=== PATIENT | male | born 1990 | race Caucasian/White ===

== ENCOUNTER 2018-05-05 06:34 | Emergency (ER) | payer SELFPAY ==
[2018-05-05] MEDS ORDERED: KETOROLAC TROMETHAMINE INJ/PF 30 MG/1 ML SDV IV ONE (07:22)
[2018-05-05] MEDS ORDERED: ONDANSETRON HCL INJ/PF 4 MG/2 ML SDV IV ONE ×2 (07:22→09:01)
[2018-05-05] MEDS ORDERED: NORMAL SALINE 1000 ML 1,000 ML IV ONE (07:22)
--- NOTE | 2018-05-05 07:22 | ER Document Report ---
ED GI/ - General Mode of Arrival: Ambulatory Information source: Patient <MARVIN BOLTON - Last Filed: 05/05/18 07:23> <HI FELDER - Last Filed: 05/05/18 10:38> - General Chief Complaint: Flank Pain Stated Complaint: FLANK PAIN Time Seen by Provider: 05/05/18 07:13 Notes: 27-year-old male with kidney stones who presents to the emergency department today with complaints of left flank pain and left lower quadrant pain x9 days. Patient states the pain began x9 days ago but it was not very bad, he states that last night the pain became worse and this morning it became very severe. Patient describes the pain as coming in "radiating waves". Patient states he last passed a kidney stone 2 years ago. Patient denies any fevers. (MARVIN BOLTON) - Related Data Allergies/Adverse Reactions: chapstick Allergy (Uncoded 05/05/18 07:06) Past Medical History - General Information source: Patient - Social History Smoking Status: Never Smoker Cigarette use (# per day): No Frequency of alcohol use: None Drug Abuse: None Occupation: [employer] Lives with: Alone Family History: Reviewed & Not Pertinent Patient has suicidal ideation: No Patient has homicidal ideation: No Renal/ Medical History: Reports: Hx Kidney Stones Past Surgical History: Reports: Hx Tonsillectomy <HOANGTORINMARVIN - Last Filed: 05/05/18 07:23> Review of Systems - Review of Systems Constitutional: denies: Fever EENT: No symptoms reported Cardiovascular: No symptoms reported Respiratory: No symptoms reported Gastrointestinal: See HPI, Abdominal pain - LLQ, suprapubic Genitourinary: See HPI, Flank pain - left Male Genitourinary: No symptoms reported Musculoskeletal: No symptoms reported Skin: No symptoms reported Hematologic/Lymphatic: No symptoms reported Neurological/Psychological: No symptoms reported -: Yes All other systems reviewed and negative <MARVIN BOLTON - Last Filed: 05/05/18 07:23> Physical Exam <HOANGMARVIN - Last Filed: 05/05/18 07:23> <HI FELDER - Last Filed: 05/05/18 10:38> - Vital signs Vitals: Temp Pulse Resp BP Pulse Ox 97.7 F 63 16 141/80 H 100 05/05/18 06:35 05/05/18 06:35 05/05/18 06:35 05/05/18 06:35 05/05/18 06:35 - Notes Notes: Physical Exam: General: Alert, appears uncomfortable. HEENT: Normocephalic. Atraumatic. PERRL. Extraocular movements intact. Oropharynx clear. Neck: Supple. Non-tender. Respiratory: No respiratory distress. Clear and equal breath sounds bilaterally. Cardiovascular: Frequent premature beats, regular rate. Abdominal: Very tender with palpation of the left lower quadrant. Tenderness increases when moving towards midline, no pelvic ttp. No distension. Normal Bowel Sounds. Back: Mild left CVA tenderness with percussion just below the left rib margin, no right CVA ttp. No deformity or step off. Extremities: Moves all four extremities. Upper extremities: Normal inspection. Normal ROM. Lower extremities: Normal inspection. No edema. Normal ROM. Neurological: Normal cognition. AAOx4. Normal speech. Psychological: Normal affect. Normal Mood. Skin: Warm. Dry. Normal color. (MARVIN BOLTON) Course <MARVIN BOLTON - Last Filed: 05/05/18 07:23> - Laboratory Result Diagrams: 05/05/18 07:49 05/05/18 07:49 - Diagnostic Test Radiology reviewed: Image reviewed, Reports reviewed - Renal scan CT shows a 2 x 5 mm stone in the distal left ureter with some hydroureter and hydronephrosis. There is also comment about a low attenuations lesion in the right liver with recommendation for follow-up. <HI FELDER - Last Filed: 05/05/18 10:38> - Re-evaluation Re-evalutation: 05/05/18 09:02 Patient was given a copy of the radiology report about the kidney stone and about the liver lesion and the recommendations. Patient states he did have a CT scan about 3 years ago while he was in [place] with a kidney stone problem. He was advised to obtain a CD of that CT scan and the radiologist written report so that his primary care provider could compare that to the current study to see if the liver lesion is new or a old stable finding. (HI FELDER ) - Vital Signs Vital signs: Temp Pulse Resp BP Pulse Ox 97.7 F 63 16 141/80 H 100 05/05/18 06:35 11/05/18 06:35 05/05/18 06:35 05/05/18 06:35 05/05/18 06:35 - Laboratory Laboratory results interpreted by me: 05/05/18 05/05/18 07:49 08:46 RBC 5.58 H Urine Protein 30 H Urine Blood LARGE H Discharge <HOANGTORIN FREEMANON - Last Filed: 05/05/18 07:23> <HI FELDER - Last Filed: 05/05/18 10:38> - Discharge Clinical Impression: Calculus of distal right ureter Condition: Stable Disposition: HOME, SELF-CARE Additional Instructions: Kidney Stone You are passing a kidney stone. These stones are usually due to increased calcium or uric acid concentrations in your urine. Stones within the kidney itself are not painful. The pain occurs as the stone leaves the kidney to pass down the long tube, called the ureter, leading to the bladder. If the stone is small, it will usually pass by itself. Most patients can pass the stone at home. You will usually receive medications for pain, nausea or vomiting, and sometimes a medication to assist in passing the kidney stone. However, if the pain is very severe or if vomiting prevents you from taking oral pain medications, you may need to return for further treatment. Drink three or four quarts of fluids per day. You will be given pain medication (if needed) and urine strainers. Strain all your urine to see if the stone passes. If your doctor has asked you to bring the stone in for analysis, return with the stone once it has passed. Return if pain or vomiting become severe, if you develop a high fever, if you are unable to pass your urine, or if other unusual symptoms occur. Take the medications as prescribed. Start the Flomax tomorrow. Take ibuprofen 800 mg every 8 hours. Drink plenty of fluids. Strain your urine. Follow-up with [facility] urology if you do not pass the stone in the next few days. RETURN TO THE EMERGENCY ROOM IF ANY NEW OR WORSENING SYMPTOMS. Prescriptions: Oxycodone HCl/Acetaminophen [Percocet 5-325 mg Tablet] 1 - 2 tab PO ASDIR PRN # 15 tablet PRN Reason: Tamsulosin HCl [Flomax] 0.4 mg PO DAILY #7 capsule Referrals: [facility] [Provider Group] - Follow up as needed Scribe Attestation: 05/05/18 08:12 I personally performed the services described in the documentation, reviewed and edited the documentation which was dictated to the scribe in my presence, and it accurately records my words and actions. (HI FELDER) Scribe Documentation - Scribe Written by Teresa:: Teresa Mendoza, 05/05/2018 0729 acting as scribe for :: Cliff <MARVIN BOLTON - Last Filed: 05/05/18 07:23>
[2018-05-05 07:59] LABS: ABSOLUTE BASOPHILS # (AUTO) 0.1 10^3/uL (0.0-0.2); ABSOLUTE EOSINOPHILS # (AUTO) 0.2 10^3/uL (0.0-0.6); ABSOLUTE LYMPHOCYTES (AUTO) 1.2 10^3/uL (0.5-4.7); ABSOLUTE MONOCYTES (AUTO) 0.8 10^3/uL (0.1-1.4); ABSOLUTE NEUT (AUTO) 4.5 10^3/uL (1.7-8.2); BASOPHILS % (AUTO) 0.8 % (0-2); EOSINOPHILS % (AUTO) 2.7 % (0-6); HEMATOCRIT 45.8 % (37.9-51.0); LYMPHOCYTES % (AUTO) 17.4 % (13-45); MEAN CORPUSCULAR HEMOGLOBIN 28.6 pg (27.0-33.4); MEAN CORPUSCULAR HGB CONC 34.9 g/dL (32.0-36.0); MEAN CORPUSCULAR VOLUME 82 fl (80-97); MONOCYTES % (AUTO) 11.8 % (3-13); PLATELET COUNT 296 10^3/uL (150-450); RED BLOOD COUNT 5.58 10^6/uL (4.35-5.55); RED CELL DISTRIBUTION WIDTH 13.2 % (11.5-14.0); SEGMENTED NEUTROPHILS % (AUTO) 67.3 % (42-78); TOTAL CELLS COUNTED % (AUTO) 100 %; WHITE BLOOD COUNT 6.7 10^3/uL (4.0-10.5)
[2018-05-05 08:21] LABS: ALANINE AMINOTRANSFERASE 30 U/L (21-72); ALBUMIN 4.5 g/dL (3.5-5.0); ALKALINE PHOSPHATASE 47 U/L (38-126); ANION GAP 11 (5-19); ASPARTATE AMINO TRANSFERASE 23 U/L (17-59); BILIRUBIN,DIRECT 0.2 mg/dL (0.0-0.4); BILIRUBIN,TOTAL 0.6 mg/dL (0.2-1.3); BLOOD UREA NITROGEN 19 mg/dL (7-20); CALCIUM 9.9 mg/dL (8.4-10.2); CARBON DIOXIDE 29 mmol/L (22-30); CHLORIDE 104 mmol/L (98-107); GLUCOSE 93 mg/dL (75-110); POTASSIUM 4.3 mmol/L (3.6-5.0); SODIUM 143.9 mmol/L (137-145); TOTAL PROTEIN 6.9 g/dL (6.3-8.2)
--- NOTE | 2018-05-05 08:51 | RADIOLOGY REPORT (SQ) ---
EXAM DESCRIPTION: CT LTD RENAL STONE PROTOCOL ON COMPLETED DATE/TIME: 05/05/2018 8:01 am REASON FOR STUDY: LLQ pain COMPARISON: None. TECHNIQUE: CT scan of the abdomen and pelvis performed without intravenous or oral contrast. Images reviewed with lung, soft tissue, and bone windows. Reconstructed coronal and sagittal MPR images revi ewed. All images stored on PACS. All CT scanners at this facility use dose modulation, iterative reconstruction, and/or weight based d osing when appropriate to reduce radiation dose to as low as reasonably achievable (ALARA). [facility]: Dose Right [facility]: CareDose [facility]: Dose Right [facility]: Teradose 4D [facility]: Smart Consumr RADIATION DOSE: CT Rad equipment meets quality standard of care and radiation dose reduction techniq ues were employed. CTDIvol: 11.2 mGy. DLP: 654 mGy-cm.mGy. LIMITATIONS: None. FINDINGS: LOWER CHEST: No significant findings. No nodules or infiltrates. NON-CONTRASTED LIVER, SPLEEN, ADRENALS: Evaluation limited by lack of IV contrast. 1.5 cm indistinct low-attenuation lesion in the peripheral right lobe of the liver (axial series 3, image 32). No oth er identified significant masses. PANCREAS: No masses. No peripancreatic inflammatory changes. GALLBLADDER: No identified stones by CT criteria. No inflammatory changes to suggest cholecystitis. RIGHT KIDNEY AND URETER: No suspicious masses. Assessment limited by lack of IV contrast. No signif icant calcifications. No hydronephrosis or hydroureter. LEFT KIDNEY AND URETER: No suspicious masses. Assessment limited by lack of IV contrast. Punctate c alculus in a lower pole calyx. 2 x 5 mm calculus in the distal ureter at the ureteral vesicular junc tion. Mild hydronephrosis and hydroureter. AORTA AND RETROPERITONEUM: No aneurysm. No retroperitoneal masses or adenopathy. BOWEL AND PERITONEAL CAVITY: No obvious masses or inflammatory changes. No free fluid. APPENDIX: Normal. PELVIS, BLADDER, AND ABDOMINAL WALL:No abnormal masses. No free fluid. Bladder normal. BONES: No significant findings. OTHER: No other significant finding. IMPRESSION: 1. 2 X 5 MM CALCULUS IN THE DISTAL LEFT URETER WITH MILD HYDRONEPHROSIS AND HYDROURETER. TINY CALYCE AL CALCULUS IN THE LOWER POLE OF THE LEFT KIDNEY. 2. INDISTINCT LOW-ATTENUATION LESION IN THE RIGHT LOBE OF THE LIVER. DIFFICULT TO DETERMINE IF THIS IS A CYST OR OTHER HEPATIC LESION. WOULD CONSIDER ULTRASOUND OF THE LIVER FOR FURTHER EVALUATION IF THERE HAS BEEN NO PRIOR WORK-UP ELSEWHERE. 3. NO OTHER SIGNIFICANT OR ACUTE PROCESS IN THE ABDOMEN OR PELVIS. COMMENT: Quality ID # [id number]: Final reports with documentation of one or more dose reduction techniques (e.g., Automated exposure control, adjustment of the mA and/or kV according to patient size, use of iterative reconstruction technique) TECHNICAL DOCUMENTATION: JOB ID: [id number] [employer] - [employer]- All Rights Reserved Reading location - IP/workstation name: [facility]
[2018-05-05] MEDS ORDERED: MORPHINE SULFATE 10 MG/ML INJ IV ONE (09:01)
[2018-05-05 09:02] LABS: APPEARANCE,URINE CLEAR; BILIRUBIN,URINE NEGATIVE (NEGATIVE); COLOR,URINE YELLOW; GLUCOSE, URINE NEGATIVE (NEGATIVE); KETONES,URINE NEGATIVE (NEGATIVE); LEUKOCYTE ESTERASE,URINE NEGATIVE (NEGATIVE); NITRITE,URINE NEGATIVE (NEGATIVE); PROTEIN,URINE 30 mg/dL (NEGATIVE); URINE SPECIFIC GRAVITY 1.032; UROBILINOGEN,URINE NEGATIVE mg/dL (<2.0)
[2018-05-05] MEDS ORDERED: TAMSULOSIN HCL 0.4 MG CAP.SR.24H PO ONE (10:26)
[2018-05-05 11:02] VITALS: BP 128/74
== END 2018-05-05 11:03 | disposition home or self-care (01) ==
LOC: ER 06:34
DX: N20.1 Calculus of ureter (principal); R10.32 Left lower quadrant pain
CPT/HCPCS: 99284; 96361; 96374; 96375; 36415; 85025; 80053; 81001; 76380; J1885; J2270; J2405; J7030